=== PATIENT | female | born 1995 | race Caucasian/White ===

== ENCOUNTER 2024-06-12 06:57 | Outpatient (CLI) | payer OTHER ==
[~2024-06-12 06:57] MED LIST: GADOTERATE MEGLUMINE 7.5 MMOL/15 ML VIAL IV ONE; LIDOcaine 1% 30ml preserv. free vial ONE; LIDOcaine 1%/PF 5ML 10 MG/ML VIAL ONE; iohexol 300 MG/1 ML 50ml polymer ONE
== END 2024-06-12 23:59 | disposition home or self-care (01) ==
LOC: RAD 06:57 → EDSTATUS 07:30 → RAD 23:59
PROVIDERS: ATTEND Nurse Practitioner
DX: M25.511 Pain in right shoulder (principal); F90.9 Attention-deficit hyperactivity disorder, unspecified type; Z98.890 Other specified postprocedural states
CPT/HCPCS: 23350; 73222; 77002; A9575; J3490; Q9967; 73040